=== PATIENT | female | born 1990 | race Caucasian/White ===

== ENCOUNTER 2023-05-21 23:55 | Emergency (ER) | payer SELFPAY ==
[~2023-05-21] VITALS: Ht 165.1 cm; Wt 55.9 kg
[2023-05-22 00:03] VITALS: BP 128/94; PULSE 115; RESP 20; TEMP 98.7; O2SAT 98
== END 2023-05-22 00:56 | disposition left against medical advice (07) ==
LOC: ER 23:56
DX: M25.571 Pain in right ankle and joints of right foot (principal); Z53.21 Procedure and treatment not carried out due to patient leaving prior to being seen by health care provider
CPT/HCPCS: 99281